=== PATIENT | male | born 1985 | race Caucasian/White ===

== ENCOUNTER 2016-12-24 12:23 | Emergency (ER) | payer SELFPAY ==
[~2016-12-24] VITALS: Ht 177.8 cm; Wt 76.0 kg
[2016-12-24 14:55] VITALS: BP 108/66
[2016-12-24 15:06] LABS: ANION GAP 10; CALCIUM 8.8 mg/dL (8.5-10.1); CARBON DIOXIDE 31 mEq/L (21-32); CHLORIDE 107 mEq/L (98-107); INDEX HEMOLYSI 1 (1-3); INDEX ICTERIC 1 (1-4); INDEX LIPEMIC 1 (1-3); UREA NITROGEN BLOOD 12 mg/dL (7-21); eGFR > 60 mL/min (>60)
== END 2016-12-24 17:19 | disposition left against medical advice (07) ==
LOC: EDSEX 12:33 → ER 12:33
DX: R53.1 Weakness (principal); E11.9 Type 2 diabetes mellitus without complications; F17.210 Nicotine dependence, cigarettes, uncomplicated; Z59.0 Homelessness
CPT/HCPCS: 36415; 80048; 82962; 99283; Z7610